=== PATIENT | male | born 1960 | race African-American/Black ===

== ENCOUNTER 2020-10-09 08:56 | Inpatient (IN) | payer OTHER ==
[2020-10-09 11:45] VITALS: BMI 28.7
[2020-10-09] MEDS ORDERED: ONDANSETRON *ODT* 4 MG TABLET SL PRN (17:37)
[2020-10-09] MEDS ORDERED: METHOCARBAMOL 500 MG TABLET PO PRN (17:37)
[2020-10-09] MEDS ORDERED: IBUPROFEN 400 MG TABLET (FP) PO PRN (17:37)
[2020-10-09] MEDS ORDERED: ACETAMINOPHEN 325 MG TABLET (FP) PO PRN ×2 (17:37)
[2020-10-09] MEDS ORDERED: MAGNESIUM CITRATE 300 ML BOTTLE PO PRN (17:37)
[2020-10-09] MEDS ORDERED: LORazepam 1 MG TABLET PO PRN (17:37)
[2020-10-09] MEDS ORDERED: BISMUTH SUBSALICYLATE 524 MG/30 ML PO PRN (17:37)
[2020-10-09] MEDS ORDERED: NICOTINE POLACRILEX 2 MG GUM BUC PRN (17:37)
[2020-10-09] MEDS ORDERED: MENTHOL/PHENOL 1 EACH UD MM PRN (17:37)
[2020-10-09] MEDS ORDERED: MAGNESIUM HYDROX 2400MG/30ML ORAL SUSPENSION 30 ML CUP PO PRN (17:37)
[2020-10-09] MEDS ORDERED: NICOTINE 10 MG CARTRIDGE (INHALER) IH PRN (17:37)
[2020-10-09] MEDS ORDERED: MAG HYDROX/AL HYDROX/SIMETH 30 ML UNIT-DOSE CUP PO PRN (17:37)
[2020-10-09] MEDS ORDERED: MELATONIN 5 MG TABLETS PO SCH (22:00)
[2020-10-09] MEDS: hydrOXYzine PAMOATE 25 MG CAPSULE (FP) PO SCH ×2 (23:01→23:03)
[2020-10-09] MEDS: LORazepam 2 MG TABLET PO SCH (23:03)
[2020-10-09] MEDS: THIAMINE HCL 100 MG TABLET (FP) PO SCH (23:05)
[2020-10-10] MEDS: LORazepam 2 MG TABLET PO SCH ×4 (05:15→22:18)
[2020-10-10] MEDS: hydrOXYzine PAMOATE 25 MG CAPSULE (FP) PO SCH ×5 (05:16→22:18)
[2020-10-10] MEDS: PRENATAL VITAMINS W/ FOLIC ACID TABLET (FP) PO SCH (10:20)
[2020-10-10] MEDS ORDERED: SUVOREXANT 10 MG TABLET PO PRN (22:00)
[2020-10-10] MEDS: THIAMINE HCL 100 MG TABLET (FP) PO SCH (22:18)
[2020-10-11] MEDS: LORazepam 1 MG TABLET PO SCH ×3 (05:47→17:45)
[2020-10-11] MEDS: hydrOXYzine PAMOATE 25 MG CAPSULE (FP) PO SCH ×2 (05:47→10:32)
[2020-10-11] MEDS: PRENATAL VITAMINS W/ FOLIC ACID TABLET (FP) PO SCH (10:31)
[2020-10-11] MEDS ORDERED: hydrOXYzine PAMOATE 25 MG CAPSULE (FP) PO PRN (11:22)
[2020-10-11] MEDS ORDERED: METHOCARBAMOL 750 MG TAB PO PRN (11:23)
[2020-10-11] MEDS ORDERED: LIDOCAINE 5% TOPICAL PATCH TP SCH (11:30)
[2020-10-11] MEDS ORDERED: IBUPROFEN 600 MG TABLET (FP) PO PRN (11:47)
[2020-10-11 14:55] LABS: HEMATOCRIT 42.5 % (35.4-49); HEMOGLOBIN 14.4 GM/dL (11.7-16.9); MCHC 33.9 g/dl (32.0-35.9); MEAN CELL VOLUME 97.2 fl (80-96); MEAN PLT VOLUME 9.6 fl (7.5-11.1); PLATELET COUNT 246 10^3/uL (134-434); RBC 4.37 M/mm3 (4.00-5.60); RDW 13.1 % (11.9-15.9); WHITE BLOOD COUNT 5.8 K/mm3 (4.0-10.0)
[2020-10-11 15:15] LABS: ALBUMIN 3.5 g/dl (3.4-5.0); BLOOD UREA NITROGEN 14.9 mg/dL (7-18); CALCIUM 9.1 mg/dL (8.5-10.1)
[2020-10-11 15:18] LABS: CREATININE 1.2 mg/dL (0.55-1.3)
[2020-10-11 15:19] LABS: TOT PROT 7.2 g/dl (6.4-8.2)
[2020-10-11 17:42] VITALS: BP 123/73; PULSE 62; TEMP 96.3
[2020-10-11] MEDS ORDERED: LIDOCAINE PATCH REMOVAL MC SCH (22:00)
[2020-10-12] MEDS ORDERED: LORazepam 0.5 MG TABLET PO PRN
[2020-10-12] MEDS ORDERED: LORazepam 0.5 MG TABLET PO SCH (05:00)
[2020-10-13] MEDS ORDERED: LORazepam 0.5 MG TABLET PO ONE (05:00)
== END 2020-10-11 19:24 | disposition left against medical advice (07) | DRG 770 ==
LOC: YASAS 08:56 → Y3N 22:05
PROVIDERS: ADMIT Allergy & Immunology; ATTEND Allergy & Immunology
PROC: HZ2ZZZZ Detoxification Services for Substance Abuse Treatment (ICD-10-PCS; principal; 2020-10-09)
DX: F10.230 Alcohol dependence with withdrawal, uncomplicated (principal); F14.20 Cocaine dependence, uncomplicated; F12.20 Cannabis dependence, uncomplicated; F17.210 Nicotine dependence, cigarettes, uncomplicated; F33.1 Major depressive disorder, recurrent, moderate; F19.282 Other psychoactive substance dependence with psychoactive substance-induced sleep disorder; F19.24 Other psychoactive substance dependence with psychoactive substance-induced mood disorder; F43.10 Post-traumatic stress disorder, unspecified; M16.0 Bilateral primary osteoarthritis of hip; M51.26 Other intervertebral disc displacement, lumbar region; R76.11 Nonspecific reaction to tuberculin skin test without active tuberculosis; Z62.810 Personal history of physical and sexual abuse in childhood; Z91.410 Personal history of adult physical and sexual abuse; Z88.0 Allergy status to penicillin
CPT/HCPCS: 36415; 71045-TC-FY; 80053; 85027; 86780; C9803; Q0162; U0003; U0005

== ENCOUNTER 2024-02-20 13:24 | Inpatient (IN) | payer OTHER ==
[2024-02-20 14:42] VITALS: BMI 21.6
[2024-02-20] MEDS ORDERED: DICYCLOMINE HCL 10 MG CAPSULE PO PRN (16:08)
[2024-02-20] MEDS ORDERED: guaiFENesin 600 MG TABLET.ER (FP) PO PRN (16:08)
[2024-02-20] MEDS ORDERED: POLYETHYLENE GLYCOL (HEALTHYLAX) 3350 17 GM PACKET PO PRN (16:08)
[2024-02-20] MEDS ORDERED: LOPERAMIDE HCL 2 MG CAPSULE PO PRN (16:08)
[2024-02-20] MEDS ORDERED: BENZOCAINE/MENTHOL (CHLORASEPTIC ) LOZENGE MM PRN (16:08)
[2024-02-20] MEDS ORDERED: BISMUTH SUBSALICYLATE 524 MG/30 ML PO PRN (16:08)
[2024-02-20] MEDS ORDERED: ACETAMINOPHEN 325 MG TABLET (FP) PO PRN (16:08)
[2024-02-20] MEDS ORDERED: MAGNESIUM HYDROX 2400MG/30ML ORAL SUSPENSION 30 ML CUP PO PRN (16:08)
[2024-02-20] MEDS ORDERED: ONDANSETRON *ODT* 4 MG TABLET SL PRN (16:08)
[2024-02-20] MEDS ORDERED: IBUPROFEN 400 MG TABLET (FP) PO PRN (16:08)
[2024-02-20] MEDS ORDERED: NALOXONE (NARCAN) HCL 4 MG/0.1 ML SPRAY NS PRN (16:08)
[2024-02-20] MEDS: THIAMINE 100 MG TABLET PO SCH (22:33)
[2024-02-20] MEDS: MELATONIN 5 MG TABLETS PO SCH (22:33)
[2024-02-21] MEDS: PANTOPRAZOLE 40 MG TABLET PO SCH (09:31)
[2024-02-21] MEDS: PRENATAL VITAMINS W/ FOLIC ACID TABLET (FP) PO SCH (09:31)
[2024-02-21] MEDS ORDERED: chlordiazePOXIDE HCL 25 MG CAPSULE PO PRN (09:54)
[2024-02-21] MEDS: chlordiazePOXIDE HCL 25 MG CAPSULE PO SCH (10:10)
[2024-02-21 11:14] LABS: HEMATOCRIT 36.4 % (35.4-49); HEMOGLOBIN 12.5 GM/dL (11.7-16.9); MCH 32.8 pg (25.7-33.7); MCHC 34.4 g/dl (32.0-35.9); MEAN CELL VOLUME 95.4 fl (80-96); MEAN PLT VOLUME 8.6 fl (7.5-11.1); PLATELET COUNT 257 10^3/uL (134-434); RBC 3.82 M/mm3 (4.00-5.60); WHITE BLOOD COUNT 4.9 K/mm3 (4.0-10.0)
[2024-02-21 11:18] LABS: CHLORIDE 109 mmol/L (98-107); POTASSIUM 4.1 mmol/L (3.5-5.1); SODIUM 141 mmol/L (136-145)
[2024-02-21 11:24] LABS: CALCIUM 8.8 mg/dL (8.5-10.1)
[2024-02-21 11:25] LABS: ANION GAP 5 mmol/L (4-13); BLOOD UREA NITROGEN 19.5 mg/dL (7-18); CO2 28 mmol/L (21-32); GLUCOSE,RANDOM 101 mg/dL (74-106)
[2024-02-21 11:26] LABS: CREATININE 1.1 mg/dL (0.55-1.3)
[2024-02-21 11:27] LABS: BILIRUBIN,TOTAL 0.3 mg/dL (0.2-1); SGOT/AST 25 U/L (15-37); SGPT/ALT 29 U/L (13-61)
[2024-02-21 11:29] LABS: ALK PHOS 84 U/L (45-117); TOT PROT 6.2 g/dl (6.4-8.2)
[2024-02-21 12:18] LABS: HIV INTERPRETATION NEGATIVE (NEGATIVE)
[2024-02-21] MEDS: traZODone HCL 100 MG TABLET (FP) PO SCH (22:04)
[2024-02-21] MEDS: IBUPROFEN 600 MG TABLET (FP) PO PRN (22:06)
[2024-02-22] MEDS: BENZONATATE 200 MG CAPSULE PO PRN (21:37)
[2024-02-23] MEDS: chlordiazePOXIDE HCL 25 MG CAPSULE PO SCH (05:38)
[2024-02-23] MEDS: hydrOXYzine PAMOATE 25 MG CAPSULE (FP) PO PRN (17:49)
[2024-02-23] MEDS: MAG HYDROX/AL HYDROX/SIMETH 30 ML UNIT-DOSE CUP PO PRN (19:45)
[2024-02-23] MEDS: METHOCARBAMOL 500 MG TABLET PO PRN (23:02)
[2024-02-24] MEDS ORDERED: chlordiazePOXIDE HCL 10 MG CAPSULE PO PRN
[2024-02-24] MEDS: chlordiazePOXIDE HCL 10 MG CAPSULE PO SCH (05:17)
[2024-02-25] MEDS: chlordiazePOXIDE HCL 10 MG CAPSULE PO SCH (05:27)
[2024-02-25 05:45] VITALS: BP 109/67; PULSE 81; RESP 16; TEMP 98.7
[2024-02-25] MEDS: NALOXONE (NYS OPIOID OVERDOSE PROGRAM) 4 MG/0.1 ML SPRAY NS SCH (08:58)
[2024-02-26] MEDS ORDERED: chlordiazePOXIDE HCL 10 MG CAPSULE PO ONE (05:00)
== END 2024-02-25 09:22 | disposition home or self-care (01) | DRG 774 ==
LOC: YASAS 13:24 → Y6N 18:24 → Y3N 02-23 22:36
PROVIDERS: ADMIT Psychiatry & Neurology Pain Medicine; ATTEND Psychiatry & Neurology Pain Medicine
PROC: HZ2ZZZZ Detoxification Services for Substance Abuse Treatment (ICD-10-PCS; principal; 2024-02-20)
DX: F10.230 Alcohol dependence with withdrawal, uncomplicated (principal); F14.20 Cocaine dependence, uncomplicated; F12.20 Cannabis dependence, uncomplicated; F17.210 Nicotine dependence, cigarettes, uncomplicated; F19.280 Other psychoactive substance dependence with psychoactive substance-induced anxiety disorder; F19.282 Other psychoactive substance dependence with psychoactive substance-induced sleep disorder; F33.1 Major depressive disorder, recurrent, moderate; F41.9 Anxiety disorder, unspecified; F43.10 Post-traumatic stress disorder, unspecified; K21.9 Gastro-esophageal reflux disease without esophagitis; M51.26 Other intervertebral disc displacement, lumbar region; M16.0 Bilateral primary osteoarthritis of hip; Z86.11 Personal history of tuberculosis; Z88.0 Allergy status to penicillin
CPT/HCPCS: 36415; 71046-TC-FY; 80053; 80305; 80307; 85027; 86780; 86803; 87389; 93005; 93010